=== PATIENT | male | born 1960 | race Caucasian/White ===

== ENCOUNTER 2020-09-06 07:38 | Day surgery (SDC) | payer OTHER ==
[~2020-09-06] VITALS: Ht 182.9 cm; Wt 103.0 kg
[~2020-09-06 07:38] MED LIST: ADULT ASPIRIN R81 MG PO; ALLERGY RELIEF10 M1 PO; FLOMAX0.4 MG PO; HYDROCODON-ACE1 EA11 PO; ONDANSETRON ODT8 MG PO; PRILOSEC20 MG PO; ROSUVASTATIN CA10 MG PO
--- NOTE | 2020-09-06 09:42 | NUR ---
09/06/20 0942 Vicki Clifton 0937- PT ARRIVES TO PACU AROUSABLE TO VOICE. PT REPORTS NO PAIN OR NAUSEA AND FALLS BACK TO SLEEP. RESP EVEN AND UNLABORED. OXYGEN SAT MID 90'S ON 2L VIA NC. 0940- PT PASSING FLATUS.
--- NOTE | 2020-09-07 08:58 | OR ---
[facility] [address], [place] [address] Signed DATE OF OPERATION: 09/06/2020 SURGEON: Sofi Hatch MD PREOPERATIVE DIAGNOSES: 1. Sister with colon cancer, age 59. 2. Rectal polyp in 2015 (age 54). 3. Diverticulosis. POSTOPERATIVE DIAGNOSIS: Minimal left and sigmoid diverticulosis. PROCEDURE: Colonoscopy without biopsy. ESTIMATED BLOOD LOSS: None. INDICATIONS: Filiberto is a 60-year-old gentleman here for a followup colonoscopy. This would be his 2nd colonoscopy. His sister was diagnosed and of stage IV colon cancer at age 59. Filiberto had an initial colonoscopy back in 2014 at the age of 54. He had a 5 mm polyp removed from the top of his rectum. He is known to have lzrwkca-zw-brfifovi sigmoid diverticulosis as well. He currently has no lower GI complaints. In the office I had givenAleksandar a pamphlet on colonoscopy. He understands the nature of the test along with the risks including, but not limited to gas bloating, crampy abdominal pain, bleeding, perforation requiring surgery, and missed diagnosis. He also understands the need for IV conscious sedation. He had expressed understanding and wished to proceed. PROCEDURE NOTE: Filiberto was taken into our endoscopy suite and placed in the left lateral decubitus position. He was given IV sedation with 6 mg of Versed and 100 mcg of fentanyl. A digital rectal exam was performed and this was unremarkable. He does have some gbos-cx-klvcpmzm induration and swelling to the prostate gland. No dominant nodules. The adult colonoscope was introduced and advanced all around into the cecum under direct visualization of the camera without difficulty. His prep was quite excellent. We could easily see the appendiceal orifice and the ileocecal valve. We took pictures throughout for photodocumentation. The scope was then slowly withdrawn. He does have diverticula in the left and sigmoid colon. They were fvegaxo-th-waizkugs in size, dyjkdaa-px-hpfpsccw in number, and scattered about. We did see the polypectomy site as Electronically Signed By: SOFI HATCH MD 09/07/20 0858 PATIENT NAME: ALEKSANDAR WOODSON OPERATIVE REPORT DATE OF : 62 REPORT #: [id number] PHYSICIAN: SOFI HATCH MD PCP: CHRIS WHITEHEAD MD REPORT IS CONFIDENTIAL AND NOT TO BE RELEASED WITHOUT AUTHORIZATION [address] [address] Signed we went past the top of the rectum. Otherwise, the rectum was unremarkable. Upon retroflexion of the scope, there was no additional pathology noted above the anal canal. After this, the gas was suctioned out, colonoscope removed. Filiberto tolerated the procedure quite well. RECOMMENDATIONS: Filiberto can follow up in 5 years for repeat colonoscopy due to his family and personal history. Sofi Hatch MD ALB/MODL /[id number] cc: Chris Whitehead MD Chart Filed Incomplete Sofi Hatch MD Copies: CHRIS WHITEHEAD MD CHART FILED INCOMPLETE SOFI HATCH MD ~ Electronically Signed By: SOFI HATCH MD 09/07/20 0858 PATIENT NAME: LATOYA WOODSONANGELES Armstrong OPERATIVE REPORT DATE OF : 62 REPORT #: [id number] PHYSICIAN: SOFI HATCH MD PCP: CHRIS WHITEHEAD MD REPORT IS CONFIDENTIAL AND NOT TO BE RELEASED WITHOUT AUTHORIZATION
== END 2020-09-06 10:15 | disposition home or self-care (01) ==
LOC: OPS 07:38 → DS 07:38 → OPS 08:30 → DS 09:00 → OPS 10:15
PROVIDERS: ATTEND Colon & Rectal Surgery
PROC: 0DJD8ZZ Inspection of Lower Intestinal Tract, Via Natural or Artificial Opening Endoscopic (ICD-10-PCS; principal; 2020-09-06 08:30)
DX: Z12.11 Encounter for screening for malignant neoplasm of colon (principal); K57.30 Diverticulosis of large intestine without perforation or abscess without bleeding; I10 Essential (primary) hypertension; E78.00 Pure hypercholesterolemia, unspecified; K21.9 Gastro-esophageal reflux disease without esophagitis; J30.2 Other seasonal allergic rhinitis; Z80.0 Family history of malignant neoplasm of digestive organs; Z87.19 Personal history of other diseases of the digestive system; Z79.899 Other long term (current) drug therapy; Z79.82 Long term (current) use of aspirin; Z88.8 Allergy status to other drugs, medicaments and biological substances
CPT/HCPCS: 99153; G0500; J2250; J3010; J7121

== ENCOUNTER 2021-01-05 11:45 | Emergency (ER) | payer OTHER ==
[~2021-01-05] VITALS: Ht 182.9 cm; Wt 106.6 kg
== END 2021-01-05 17:35 | disposition home or self-care (01) ==
LOC: ED 11:45
DX: U07.1 COVID-19 (principal); K22.4 Dyskinesia of esophagus; I10 Essential (primary) hypertension; E78.00 Pure hypercholesterolemia, unspecified; Z79.82 Long term (current) use of aspirin; Z79.899 Other long term (current) drug therapy
CPT/HCPCS: 70360; 71045; 80053; 85025; 96374; 96375; 99284-25; C9113; C9803; J1610; J3360; J7030; U0003